=== PATIENT | male | born 1965 | race Two or more races ===

== ENCOUNTER 2024-05-30 09:53 | Outpatient (AMB) | payer MEDICAID, SELFPAY ==
[2024-05-30 10:04] VITALS: BP 150/94; PULSE 71; RESP 18; TEMP 36.6; O2SAT 93; BMI 27.9
--- NOTE | 2024-05-30 10:04 | PD.ORTHCLVIS ---
Vital signs 05/30/24 10:04 Height 1.73 m Height Method Stated Weight 83.574 kg Weight Measurement Method Standing Scale BMI 27.9 BP 150/94 H Blood Pressure Source Automatic Cuff Blood Pressure Location Left Upper Arm Position Sitting Respiration 18 Pulse 71 Pulse Source Monitor Temp 97.8 F Temp Source Temporal Artery Scan Pulse Oximetry (%) 93 L Oxygen Delivery Method Room Air Med/Allergies Allergies & Medications Allergies No Known Allergies Allergy (Verified 05/30/24 10:05) Medication Reconciliation meloxicam 15 mg tablet 15 mg PO QDAY 03/29/24 [History Confirmed 05/30/24] meloxicam 7.5 mg tablet 7.5 mg PO QDAY #45 tabs 05/30/24 [Rx] pregabalin 75 mg capsule 75 mg PO bid #45 caps 05/30/24 [Rx] Subjective Visit Visit for: follow up visit and knee (BILATERAL) Immunization / Flu Flu Vaccine in the Last 12 Months: Yes Flu Vaccine Exclusion Criteria: Already Received History of Present Illness Chief complaint: BILATERAL KNEE PAIN Sabrina Kern is a pleasant 58-year-old male with bilateral knee pain worse on the left. He reports that on the left side the pain starts just above the knee and radiates all the way down to his toes. He feels like there is significant pain and is electric like. On the right side the pain is isolated to the knee and it has no radicular distributions. The patient has not had any injections in his knee. He has tried ibuprofen. Pain Pain level (0-10): 9 Pain duration: CONSTANT Pain location: inside (medial) Pain quality: sharp, dull and aching Pain timing: night, increases with activity and stairs Associated signs & symptoms: weakness and stiffness Ambulatory data Ambulatory device: none Treatments Improvement with previous injections: No Improvement with PT: No Improvement with NSAIDS: no Review of Systems Review of Systems: All systems negative unless otherwise noted in HPI. Exam Exam Patient is in no acute distress and is cooperative with the examination today. Breathing is nonlabored. In no respiratory distress. Bilateral extremities were evaluated and demonstrates sensation intact to light touch. Palpable pedal pulses are present. No significant edema is present. Bilateral hips were examined. The patient has no pain with log roll of the hips. Internal rotation to 30 degrees and external rotation to 30 degrees is painless. Negative FADIR. The left knee was examined. The left knee is in [varus] alignment. Range of motion from [0-115] degrees. Knee is stable to varus and valgus as well as AP translation with <5mm. Patient has a [negative] McMurrays. There is [no] pain with patellofemoral compression and [no] crepitus noted. The knee is [tender] to palpation [medially]. The right knee was also examined. The right knee is in [varus] alignment. Range of motion from [0-120] degrees. Knee is stable to varus and valgus as well as AP translation with <5mm. Patient has a [negative] McMurrays. There is [no] pain with patellofemoral compression and [no] crepitus noted. The knee is [tender] to palpation [medially]. X-rays demonstrate right greater than left knee arthritis. Is severe on the right and mild on the left. Assessment and Plan Problem List (1) Degenerative arthritis of knee, bilateral: Status: Acute Plan: Pelon is a pleasant 58-year-old male with bilateral knee pain and bilateral knee arthritis. We will start with bilateral knee injections. I am not sure if his left knee is neuropathy symptoms or from his left knee arthritis. We will start with both diagnostic and therapeutic injections Recommend knee cortisone injections as patient would like to proceed with conservative treatment at this time. The risks and benefits of the procedure were reviewed with the patient and patient gave verbal consent to continue with the procedure. Procedure: performed by Dr. Harvey Using sterile technique the Bilateral knees were thoroughly prepped with alcohol, and approximately 1 cc of Kenalog 40 mg/mL and 4 cc of 1% lidocaine was injected into each knee without resistance into the medial tibial femoral joint space. The patient tolerated the procedure. Office Procedures GNS Level of Care Nursing/Assessment Patient Status: Established Patient Nursing Assessment/Reassesment: Medication Reconciliation, Update PMH in EMR and Vital Signs Coordination of Care: Complex Care and Chronic Disease 1-5, Education Complex Pt/Fam, Consent,records obtained, informed consent, 1 Ins Authorization, Results/Orders obtained and Staff clarify orders Special Needs: Language special needs Established Patient Charge Established Patient Point Assignment: 110 Established Patient Point Charge: EP Level 3 (80-115) Medication Given Medication Given Medication Given: Yes Documented Dose Given: 4 Route: Infiitration Medication Given Medication Given Medication Given: Yes Documented Dose Given: 4 Route: Infiitration Medication Given Medication Given Medication Given: Yes Documented Dose Given: 1 Route: Infiitration Medication Given Medication Given Medication Given: Yes Documented Dose Given: 1 Route: Infiitration Office Meds Xylocaine 10 mg/mL (1 %) injection solution Performing Provider: George Harvey MD Performing Location: [facility] Administered by: George Harvey MD on 05/30/24 10:29 Dose Route Admin Location Dispensed Lot Number Expiration Date [employer] 20 mL Infiltration 20 mL [id number] 02/19/27 93878-747-96 [employer] Xylocaine 10 mg/mL (1 %) injection solution Performing Provider: George Harvey MD Performing Location: [facility] Administered by: George Harvey MD on 05/30/24 10:29 Dose Route Admin Location Dispensed Lot Number Expiration Date ND [employer] 20 mL Infiltration 20 mL [id number] 02/19/27 03823-025-70 [employer] triamcinolone acetonide 40 mg/mL suspension for injection Performing Provider: George Harvey MD Performing Location: [facility] Administered by: George Harvey MD on 05/30/24 10:29 Dose Route Admin Location Dispensed Lot Number Expiration Date ND [employer] 40 mg Infiltration 1 mL [id number] 02/19/26 [address]-1 [employer] triamcinolone acetonide 40 mg/mL suspension for injection Performing Provider: George Harvey MD Performing Location: [facility] Administered by: George Harvey MD on 05/30/24 10:29 Dose Route Admin Location Dispensed Lot Number Expiration Date ND [employer] 40 mg Infiltration 1 mL [id number] 02/19/27 [address]-7 [employer] Past Medical History Past Medical History Have you ever been diagnosed with any of the following: Cardiology Problems Hypertension: Yes Respiratory Problems Smoking: No Smoking Exposure: No
== END 2024-05-30 10:36 | disposition home or self-care (01) ==
LOC: HODSRG 09:53
PROVIDERS: PCP Family Medicine; Referring Provider Family Medicine; Supervising Provider Orthopaedic Surgery Adult Reconstructive Orthopaedic Surgery; Visit Provider Orthopaedic Surgery Adult Reconstructive Orthopaedic Surgery
DX: M17.0 Bilateral primary osteoarthritis of knee (principal); M25.562 Pain in left knee; M25.561 Pain in right knee; I10 Essential (primary) hypertension
CPT/HCPCS: 20610; 99213; J3301; J3490; G0463

== ENCOUNTER 2024-09-03 13:30 | Outpatient (AMB) | payer MEDICAID, SELFPAY ==
[2024-09-03 13:50] VITALS: BP 132/87; PULSE 83; RESP 18; TEMP 36.8; O2SAT 96; BMI 28.6
--- NOTE | 2024-09-03 13:50 | ORTHONT_ITS ---
Vital signs 09/03/24 13:50 Height 1.73 m Height Method Stated Weight 85.729 kg Weight Measurement Method Standing Scale BMI 28.6 BP 132/87 H Blood Pressure Source Automatic Cuff Blood Pressure Location Left Upper Arm Position Sitting Respiration 18 Pulse 83 Pulse Source Monitor Temp 98.2 F Temp Source Temporal Artery Scan Pulse Oximetry (%) 96 Oxygen Delivery Method Room Air Med/Allergies Allergies & Medications Allergies No Known Allergies Allergy (Verified 09/03/24 13:50) Medication Reconciliation meloxicam 15 mg tablet 15 mg PO QDAY 03/29/24 [History Confirmed 09/03/24] meloxicam 7.5 mg tablet 7.5 mg PO QDAY #45 tabs 05/30/24 [Rx Confirmed 09/03/24] pregabalin 75 mg capsule 75 mg PO bid #45 caps 05/30/24 [Rx Confirmed 09/03/24] Exam Exam Patient is in no acute distress and is cooperative with the examination today. Breathing is nonlabored. In no respiratory distress. Bilateral extremities were evaluated and demonstrates sensation intact to light touch. Palpable pedal pulses are present. No significant edema is present. Bilateral hips were examined. The patient has no pain with log roll of the hips. Internal rotation to 30 degrees and external rotation to 30 degrees is painless. Negative FADIR. The left knee was examined. The left knee is in [varus] alignment. Range of motion from [0-115] degrees. Knee is stable to varus and valgus as well as AP translation with <5mm. Patient has a [negative] McMurrays. There is [no] pain with patellofemoral compression and [no] crepitus noted. The knee is [tender] to palpation [medially]. The right knee was also examined. The right knee is in [varus] alignment. Range of motion from [0-120] degrees. Knee is stable to varus and valgus as well as AP translation with <5mm. Patient has a [negative] McMurrays. There is [no] pain with patellofemoral compression and [no] crepitus noted. The knee is [tender] to palpation [medially]. X-rays demonstrate right greater than left knee arthritis. it Is severe on the right and mild on the left. Assessment and Plan Problem List (1) Degenerative arthritis of knee, bilateral: Status: Acute Plan: Pelon is a pleasant 58-year-old male with bilateral knee pain and bilateral knee arthritis. We will start with bilateral knee injections. I am not sure if his left knee is neuropathy symptoms or from his left knee arthritis. We will start with both diagnostic and therapeutic injections Recommend knee cortisone injections as patient would like to proceed with conservative treatment at this time. The risks and benefits of the procedure were reviewed with the patient and patient gave verbal consent to continue with the procedure. Procedure: performed by Dr. Harvey Using sterile technique the Bilateral knees were thoroughly prepped with alcohol, and approximately 1 cc of Kenalog 40 mg/mL and 4 cc of 1% lidocaine was injected into each knee without resistance into the medial tibial femoral joint space. The patient tolerated the procedure. Office Procedures GNS Level of Care Nursing/Assessment Patient Status: Established Patient Nursing Assessment/Reassesment: Medication Reconciliation, Update PMH in EMR and Vital Signs Coordination of Care: Complex Care and Chronic Disease 1-5, Education Complex Pt/Fam, Consent,records obtained, informed consent, Results/Orders obtained and Staff clarify orders Special Needs: Language special needs Established Patient Charge Established Patient Point Assignment: 95 Established Patient Point Charge: EP Level 3 (80-115) MA Intake Visit Data Collection New Patient or Established: Established Patient (seen at [facility] within 3 years) Reason for Visit:: BL KNEE INJECTION F/U Seen by Clinical Staff ONLY (RN/MA): No Hot Saw Helper Required: Yes PCP or OBGYN visit in last 3 months: Yes Hx Now: No Do You Feel Safe at Home: Yes Authorities Contacted: N/A Questionairres Past Medical History Past Medical History Have you ever been diagnosed with any of the following: Cardiology Problems Hypertension: Yes Respiratory Problems Smoking: No Smoking Exposure: No Subjective Visit Visit for: follow up visit, knee and injections Immunization / Flu Flu Vaccine in the Last 12 Months: No Flu Vaccine Exclusion Criteria: No Exclusion Criteria History of Present Illness Chief complaint: right knee pain Patient is a pleasant 58-year-old male with actually bilateral knee pain worse on the left greater than the right today. He reports significant knee pain. The pain is primarily medial. This has been ongoing for 7 years. He reports that he has had more than 10 injections on each knee. The pain is affecting his quality life and happiness. He reports that he would bilateral knee injections again as the last one worked more than 3 months Pain Pain level (0-10): 6 Pain duration: COMES AND GOES Pain location: inside (medial), outside (lateral) and anterior Pain quality: sharp, dull and aching Associated signs & symptoms: none Ambulatory data Ambulatory device: none Treatments Improvement with previous injections: No Improvement with PT: No Improvement with NSAIDS: no Review of Systems Review of Systems: All systems negative unless otherwise noted in HPI.
== END 2024-09-03 14:29 | disposition home or self-care (01) ==
LOC: HODSRG 13:30
PROVIDERS: PCP Family Medicine; Referring Provider Family Medicine; Supervising Provider Orthopaedic Surgery Adult Reconstructive Orthopaedic Surgery; Visit Provider Orthopaedic Surgery Adult Reconstructive Orthopaedic Surgery
DX: M17.0 Bilateral primary osteoarthritis of knee (principal); M25.562 Pain in left knee; M25.561 Pain in right knee; I10 Essential (primary) hypertension
CPT/HCPCS: 20610; 99213; J3301; J3490; G0463

== ENCOUNTER 2025-01-02 08:01 | Outpatient (AMB) | payer MEDICAID, SELFPAY ==
[2025-01-02 08:11] VITALS: BP 145/97; PULSE 59; RESP 17; TEMP 36.2; O2SAT 95; BMI 28.2
--- NOTE | 2025-01-02 08:11 | ORTHONT_ITS ---
Vital signs 01/02/25 08:11 Height 1.73 m Height Method Stated Weight 84.425 kg Weight Measurement Method Standing Scale BMI 28.2 BP 145/97 H Blood Pressure Source Automatic Cuff Blood Pressure Location Right Upper Arm Position Sitting Respiration 17 Pulse 59 L Pulse Source Monitor Temp 97.2 F Temp Source Temporal Artery Scan Pulse Oximetry (%) 95 Oxygen Delivery Method Room Air Med/Allergies Allergies & Medications Allergies No Known Allergies Allergy (Verified 01/02/25 08:13) Medication Reconciliation meloxicam 15 mg tablet 15 mg PO QDAY 03/29/24 [History Confirmed 01/02/25] pregabalin 75 mg capsule 75 mg PO bid #45 caps 05/30/24 [Rx Confirmed 01/02/25] meloxicam 7.5 mg tablet 7.5 mg PO QDAY #45 tabs 01/02/25 [Rx] Exam Exam Patient is in no acute distress and is cooperative with the examination today. Breathing is nonlabored. In no respiratory distress. Bilateral extremities were evaluated and demonstrates sensation intact to light touch. Palpable pedal pulses are present. No significant edema is present. Bilateral hips were examined. The patient has no pain with log roll of the hips. Internal rotation to 30 degrees and external rotation to 30 degrees is painless. Negative FADIR. The left knee was examined. The left knee is in [varus] alignment. Range of motion from [0-115] degrees. Knee is stable to varus and valgus as well as AP translation with <5mm. Patient has a [negative] McMurrays. There is [no] pain with patellofemoral compression and [no] crepitus noted. The knee is [tender] to palpation [medially]. The right knee was also examined. The right knee is in [varus] alignment. Range of motion from [0-120] degrees. Knee is stable to varus and valgus as well as AP translation with <5mm. Patient has a [negative] McMurrays. There is [no] pain with patellofemoral compression and [no] crepitus noted. The knee is [tender] to palpation [medially]. X-rays demonstrate right greater than left knee arthritis. it Is severe on the right and mild on the left. Assessment and Plan Problem List (1) Degenerative arthritis of knee, bilateral: Status: Acute Plan: Pelon is a pleasant 58-year-old male with bilateral knee pain and bilateral knee arthritis. HE would like bilateral knee injections today Recommend knee cortisone injections as patient would like to proceed with conservative treatment at this time. The risks and benefits of the procedure were reviewed with the patient and patient gave verbal consent to continue with the procedure. Procedure: performed by Dr. Harvey Using sterile technique the Bilateral knees were thoroughly prepped with alcohol, and approximately 1 cc of Kenalog 40 mg/mL and 4 cc of 1% lidocaine was injected into each knee without resistance into the medial tibial femoral joint space. The patient tolerated the procedure. Office Procedures GNS Level of Care Nursing/Assessment Patient Status: Established Patient Nursing Assessment/Reassesment: Medication Reconciliation, Update PMH in EMR and Vital Signs Coordination of Care: Complex Care and Chronic Disease 1-5, Education Complex Pt/Fam, Consent,records obtained, informed consent, Results/Orders obtained and Staff clarify orders Special Needs: Language special needs (NEPALESE ) Established Patient Charge Established Patient Point Assignment: 95 Established Patient Point Charge: EP Level 3 (80-115) Surgical Proc/IM SQ injection Major Surgical Procedure: Yes (BILATERAL KNEE INJECTION) Medication Given Medication Given Medication Given: Yes Documented Dose Given: 8 Route: Infiitration Medication Given Medication Given Medication Given: Yes Documented Dose Given: 2 Route: Infiitration Office Meds Xylocaine 10 mg/mL (1 %) injection solution Performing Provider: George Harvey MD Performing Location: [facility] Administered by: George Harvey MD on 01/02/25 08:23 Dose Route Admin Location Dispensed Lot Number Expiration Date [facility] [employer] 40 mL Infiltration 40 mL [id number] 11/21/27 73897-706-18 [facility] triamcinolone acetonide 40 mg/mL suspension for injection Performing Provider: George Harvey MD Performing Location: [facility] Administered by: Mag Colin on 01/02/25 08:23 Dose Route Admin Location Dispensed Lot Number Expiration Date [facility] [employer] 80 mg intra-articular 2 mL [id number] 02/19/26 38290-796-28 SHELLY HAMEED MA Intake Visit Data Collection New Patient or Established: Established Patient (seen at [facility] within 3 years) Reason for Visit:: 3 MNTH BILATERAL KNEE INJECTION Seen by Clinical Staff ONLY (RN/MA): No Licensed [employer]almer Required: Yes PCP or OBGYN visit in last 3 months: Yes Hx Now: No Do You Feel Safe at Home: Yes Authorities Contacted: N/A Questionairres Past Medical History Past Medical History Have you ever been diagnosed with any of the following: Cardiology Problems Hypertension: Yes Respiratory Problems Smoking: No Smoking Exposure: No Subjective Visit Visit for: follow up visit and knee (BILATERAL KNEE PAIN ) Immunization / Flu Flu Vaccine in the Last 12 Months: No Flu Vaccine Exclusion Criteria: Refused by Patient and No Exclusion Criteria History of Present Illness Chief complaint: right knee pain Patient is a pleasant 58-year-old male with actually bilateral knee pain worse on the left greater than the right today. He reports significant knee pain. The pain is primarily medial. This has been ongoing for 7 years. He reports that he has had more than 10 injections on each knee. The pain is affecting his quality life and happiness. The injections did not last as long as last time but he would like to try another rounds Personal History Red flag PMH: none Pain Pain level (0-10): 4 Pain duration: 1 YEAR Pain location: inside (medial), outside (lateral) and anterior Pain quality: sharp, dull and aching Pain timing: night and increases with activity Associated signs & symptoms: weakness, stiffness and none Ambulatory data Ambulatory device: none Walking distance (minutes): 1 Treatments Number of previous injections: 3 Improvement with previous injections: No Number of Physical Therapy sessions: 0 Improvement with PT: No Improvement with NSAIDS: n/a Review of Systems Review of Systems: All systems negative unless otherwise noted in HPI.
== END 2025-01-02 08:27 | disposition home or self-care (01) ==
LOC: HODSRG 08:01
PROVIDERS: PCP Family Medicine; Referring Provider Family Medicine; Supervising Provider Orthopaedic Surgery Adult Reconstructive Orthopaedic Surgery; Visit Provider Orthopaedic Surgery Adult Reconstructive Orthopaedic Surgery
DX: M17.0 Bilateral primary osteoarthritis of knee (principal); M25.562 Pain in left knee; M25.561 Pain in right knee; I10 Essential (primary) hypertension
CPT/HCPCS: 20610; 99213; J3301; J3490; G0463

== ENCOUNTER 2025-04-03 07:47 | Outpatient (AMB) | payer MEDICAID, SELFPAY ==
--- NOTE | 2025-04-03 08:06 | ORTHONT_ITS ---
Vital signs 04/03/25 08:07 Height 1.73 m Height Method Measured Weight 84.368 kg Weight Measurement Method Standing Scale BMI 28.1 BP 164/91 H Blood Pressure Source Automatic Cuff Blood Pressure Location Left Upper Arm Position Sitting Respiration 18 Pulse 66 Pulse Source Monitor Temp 97.0 F Temp Source Temporal Artery Scan Pulse Oximetry (%) 66 L Oxygen Delivery Method Room Air Med/Allergies Allergies & Medications Allergies No Known Allergies Allergy (Verified 04/03/25 08:08) Medication Reconciliation meloxicam 15 mg tablet 15 mg PO QDAY 03/29/24 [History Confirmed 04/03/25] pregabalin 75 mg capsule 75 mg PO bid #45 caps 05/30/24 [Rx Confirmed 04/03/25] meloxicam 7.5 mg tablet 7.5 mg PO QDAY #45 tabs 01/02/25 [Rx Confirmed 04/03/25] Exam Exam Patient is in no acute distress and is cooperative with the examination today. Breathing is nonlabored. In no respiratory distress. Bilateral extremities were evaluated and demonstrates sensation intact to light touch. Palpable pedal pulses are present. No significant edema is present. Bilateral hips were examined. The patient has no pain with log roll of the hips. Internal rotation to 30 degrees and external rotation to 30 degrees is painless. Negative FADIR. The left knee was examined. The left knee is in varus alignment. Range of motion from 0-115 degrees. Knee is stable to varus and valgus as well as AP translation with <5mm. Patient has a negative McMurrays. There is no pain with patellofemoral compression and no crepitus noted. The knee is [tender] to palpation [medially]. The right knee was also examined. The right knee is in varus alignment. Range of motion from 0-120 degrees. Knee is stable to varus and valgus as well as AP translation with <5mm. Patient has a negative McMurrays. There is [no] pain with patellofemoral compression and no crepitus noted. The knee is tender to palpation medially. X-rays demonstrate right greater than left knee arthritis. it Is severe on the right and mild on the left. There is complete obliteration of the medial joint space Assessment and Plan Problem List (1) Degenerative arthritis of knee, bilateral: Status: Acute Plan: Pelon is a pleasant 58-year-old male with bilateral knee pain and bilateral knee arthritis. He reports significant right knee pain compared to the left. The pain is Affecting his quality life and happiness. He has exhausted conservative treatment has had over 10 injections and anti-inflammatories The nature and purpose of the total knee replacement, alternative method(s) of treatment, the material risks involved, and the possibility of complications were fully explained to the patient. The patient does NOT have any of the following contraindications to TKA: - Active infection of the knee joint, OR - Active systemic bacteremia, OR - Active skin infection or open wound at surgical site, OR - Neuropathic arthritis, OR - Severe, rapidly progressive neurological disease, OR - Severe medical condition that makes risks of surgery outweigh the potential benefit. ?The patient was told the most common risks and complications associated with a total knee replacement include, but are not limited to: blood clots in the leg, stiffness, fatal pulmonary embolism, dislocation of the prosthesis, intraoperative and postoperative fractures of the femur or tibia, infection, failure of the prosthesis or grafting materials, complications from anesthesia, reactions to blood transfusions, postoperative leg length inequality, instability of the knee replacement, nerve damage or injury, vascular injury, delayed wound healing, infection, other injury or even . In addition, there are risks associated with anesthesia given during this operation. Also, the patient was told that after undergoing a total knee replacement there may still be persistent pain or disability. The patient was informed that the success of this operation in part depends upon the mechanical devices which are going to be implanted and that these devices can fail or malfunction, and may need to be repaired or replaced and there are no guarantees as to the longevity of this device or its parts and that it or its parts could fail prematurely. The importance of compliance with physical therapy was also discussed with the patient. The patient was also notified that during the course of surgery, there may be a need to use bone graft from donors, and that any bone graft used will be carefully screened for communicable diseases, including AIDS, hepatitis, [place]-Creutzfeldt, or other diseases, but despite the screening procedures, there is a small chance that they could contract one of these diseases. Finally, the patient was asked to follow completely and fully with all advice and recommended treatments, and that recovery and ultimate outcome are affected by their compliance with recommended treatment. We discussed the risks, benefits and treatment alternatives, and the patient is interested in proceeding with surgery. We will try to set this up as expeditiously as possible. Office Procedures GNS Level of Care Nursing/Assessment Patient Status: Established Patient Nursing Assessment/Reassesment: Medication Reconciliation, Orthostatic Vitals, Update PMH in EMR and Vital Signs Coordination of Care: Complex Care and Chronic Disease 1-5, Education Complex Pt/Fam, Consent,records obtained, informed consent, Results/Orders obtained and Staff clarify orders Special Needs: Language special needs Established Patient Charge Established Patient Point Assignment: 105 Established Patient Point Charge: EP Level 3 (80-115) MA Intake Visit Data Collection New Patient or Established: Established Patient (seen at [facility] [place] within 3 years) Reason for Visit:: 3 MNTH BILATERAL KNEE INJECTION Seen by Clinical Staff ONLY (RN/MA): No Mechanical Equipment Test Engineer Required: Yes PCP or OBGYN visit in last 3 months: Yes Hx Now: No Do You Feel Safe at Home: Yes Authorities Contacted: N/A Questionairres Past Medical History Past Medical History Have you ever been diagnosed with any of the following: Cardiology Problems Hypertension: Yes Respiratory Problems Smoking: No Smoking Exposure: No Subjective Visit Visit for: follow up visit and knee (BILATERAL KNEE PAIN ) Immunization / Flu Flu Vaccine in the Last 12 Months: No Flu Vaccine Exclusion Criteria: Refused by Patient and No Exclusion Criteria History of Present Illness Chief complaint: right knee pain Patient is a pleasant 58-year-old male with actually bilateral knee pain worse on the left greater than the right today. He reports significant knee pain. The pain is primarily medial. This has been ongoing for 7 years. He reports that he has had more than 10 injections on each knee. He has also tried home exercises and NSAIDs. The pain is affecting his quality life and happiness. Personal History Red flag PMH: none Pain Pain level (0-10): 7 Pain duration: 1 YEAR Pain location: inside (medial), outside (lateral) and anterior Pain quality: sharp, dull and aching Pain timing: night and increases with activity Associated signs & symptoms: weakness, stiffness and none Ambulatory data Ambulatory device: none Walking distance (minutes): 1 Treatments Number of previous injections: 3 Improvement with previous injections: No Number of Physical Therapy sessions: 0 Improvement with PT: No Improvement with NSAIDS: n/a Review of Systems Review of Systems: All systems negative unless otherwise noted in HPI.
[2025-04-03 08:07] VITALS: BP 164/91; PULSE 66; RESP 18; TEMP 36.1; O2SAT 66; BMI 28.1
== END 2025-04-03 08:26 | disposition home or self-care (01) ==
PROVIDERS: PCP Family Medicine; Referring Provider Family Medicine; Supervising Provider Orthopaedic Surgery Adult Reconstructive Orthopaedic Surgery; Visit Provider Orthopaedic Surgery Adult Reconstructive Orthopaedic Surgery
DX: M17.0 Bilateral primary osteoarthritis of knee (principal); M25.562 Pain in left knee; M25.561 Pain in right knee; I10 Essential (primary) hypertension
CPT/HCPCS: 99213; G0463

== ENCOUNTER → 2025-05-09 | Outpatient (CLI) | payer MEDICAID, SELFPAY ==
--- NOTE | 2025-05-09 11:00 | XR_ITS ---
Examination: CT right lower extremity without intravenous contrast, 2-D sagittal reconstructions. 2-D coronal reconstructions. 3-D reconstructions. Date and time of exam: May 09, 2025, 1040 hours INDICATIONS: Diagnosis right knee unilateral osteoarthritis, right knee pain several months CTDI: vol (mGy): 25.52 DLP: (mGycm): 958 Technique: Multiple 1.25 mm axial sections of the right lower extremity without intravenous contrast have been obtained. 2-D sagittal and coronal reconstructions have been obtained. 3-D reconstructions have been obtained. Low dose protocols were performed. One or more of the following dose reduction techniques were used; automated exposure control, adjustment of the mA and/or KV according to patient size, use of iterative reconstruction technique. Findings: Moderate osteopenia. Moderate narrowing right and left hip joints No hip or pelvic fracture noted Severe narrowing medial joint space right knee Advanced osteoarthritis lateral patellofemoral joints right knee No fracture No avascular necrosis IMPRESSION: Severe narrowing medial joint space right knee Advanced tricompartment osteoarthritis right knee
== END | disposition home or self-care (01) ==
PROVIDERS: PCP Family Medicine; Referring Provider Orthopaedic Surgery Adult Reconstructive Orthopaedic Surgery; Visit Provider Orthopaedic Surgery Adult Reconstructive Orthopaedic Surgery
DX: M25.861 Other specified joint disorders, right knee (principal); M17.11 Unilateral primary osteoarthritis, right knee
CPT/HCPCS: 73700

== ENCOUNTER 2025-06-12 07:57 | Outpatient (AMB) | payer MEDICAID, SELFPAY ==
--- NOTE | 2025-06-12 08:08 | ORTHONT_ITS ---
Vital signs 06/12/25 08:12 Height 1.73 m Height Method Measured Weight 84.056 kg Weight Measurement Method Standing Scale BMI 28.0 BP 151/89 H Blood Pressure Source Automatic Cuff Blood Pressure Location Left Upper Arm Position Sitting Respiration 18 Pulse 66 Pulse Source Monitor Temp 96.7 F L Temp Source Temporal Artery Scan Pulse Oximetry (%) 92 L Oxygen Delivery Method Room Air Med/Allergies Allergies & Medications Allergies No Known Allergies Allergy (Verified 06/12/25 08:12) Medication Reconciliation meloxicam 15 mg tablet 15 mg PO QDAY 03/29/24 [History Confirmed 06/12/25] pregabalin 75 mg capsule 75 mg PO bid #45 caps 05/30/24 [Rx Confirmed 06/12/25] meloxicam 7.5 mg tablet 7.5 mg PO QDAY #45 tabs 04/03/25 [Rx Confirmed 06/12/25] Exam Exam Patient is in no acute distress and is cooperative with the examination today. Breathing is nonlabored. In no respiratory distress. Bilateral extremities were evaluated and demonstrates sensation intact to light touch. Palpable pedal pulses are present. No significant edema is present. Bilateral hips were examined. The patient has no pain with log roll of the hips. Internal rotation to 30 degrees and external rotation to 30 degrees is painless. Negative FADIR. The left knee was examined. The left knee is in varus alignment. Range of motion from 0-115 degrees. Knee is stable to varus and valgus as well as AP translation with <5mm. Patient has a negative McMurrays. There is no pain with patellofemoral compression and no crepitus noted. The knee is [tender] to palpation [medially]. The right knee was also examined. The right knee is in varus alignment. Range of motion from 0-120 degrees. Knee is stable to varus and valgus as well as AP translation with <5mm. Patient has a negative McMurrays. There is [no] pain with patellofemoral compression and no crepitus noted. The knee is tender to palpation medially. X-rays demonstrate right greater than left knee arthritis. it Is severe on the right and mild on the left. There is complete obliteration of the medial joint space Assessment and Plan Problem List (1) Degenerative arthritis of knee, bilateral: Status: Acute Plan: Pelon is a pleasant 58-year-old male with bilateral knee pain and bilateral knee arthritis. He reports significant right knee pain compared to the left. The pain is Affecting his quality life and happiness. He has exhausted conservative treatment has had over 10 injections and anti-inflammatories. He is scheduled for June 25 The nature and purpose of the total knee replacement, alternative method(s) of treatment, the material risks involved, and the possibility of complications were fully explained to the patient. The patient does NOT have any of the following contraindications to TKA: - Active infection of the knee joint, OR - Active systemic bacteremia, OR - Active skin infection or open wound at surgical site, OR - Neuropathic arthritis, OR - Severe, rapidly progressive neurological disease, OR - Severe medical condition that makes risks of surgery outweigh the potential benefit. ?The patient was told the most common risks and complications associated with a total knee replacement include, but are not limited to: blood clots in the leg, stiffness, fatal pulmonary embolism, dislocation of the prosthesis, intraoperative and postoperative fractures of the femur or tibia, infection, failure of the prosthesis or grafting materials, complications from anesthesia, reactions to blood transfusions, postoperative leg length inequality, instability of the knee replacement, nerve damage or injury, vascular injury, delayed wound healing, infection, other injury or even . In addition, there are risks associated with anesthesia given during this operation. Also, the patient was told that after undergoing a total knee replacement there may still be persistent pain or disability. The patient was informed that the success of this operation in part depends upon the mechanical devices which are going to be implanted and that these devices can fail or malfunction, and may need to be repaired or replaced and there are no guarantees as to the longevity of this device or its parts and that it or its parts could fail prematurely. The importance of compliance with physical therapy was also discussed with the patient. The patient was also notified that during the course of surgery, there may be a need to use bone graft from donors, and that any bone graft used will be carefully screened for communicable diseases, including AIDS, hepatitis, [place]-Creutzfeldt, or other diseases, but despite the screening procedures, there is a small chance that they could contract one of these diseases. Finally, the patient was asked to follow completely and fully with all advice and recommended treatments, and that recovery and ultimate outcome are affected by their compliance with recommended treatment. We discussed the risks, benefits and treatment alternatives, and the patient is interested in proceeding with surgery. We will try to set this up as expeditiously as possible. Office Procedures GNS Level of Care Nursing/Assessment Patient Status: Established Patient Nursing Assessment/Reassesment: Medication Reconciliation, Update PMH in EMR and Vital Signs Coordination of Care: Complex Care and Chronic Disease 1-5, Education Complex Pt/Fam, Consent,records obtained, informed consent, Results/Orders obtained and Staff clarify orders Established Patient Charge Established Patient Point Assignment: 95 Established Patient Point Charge: EP Level 3 (80-115) MA Intake Visit Data Collection New Patient or Established: Established Patient (seen at [facility] within 3 years) Reason for Visit:: PRE OP RIGHT TKA Seen by Clinical Staff ONLY (RN/MA): No Supervisor Wound Required: Yes PCP or OBGYN visit in last 3 months: Yes Hx Now: No Do You Feel Safe at Home: Yes Authorities Contacted: N/A Questionairres Past Medical History Past Medical History Have you ever been diagnosed with any of the following: Cardiology Problems Hypertension: Yes Respiratory Problems Smoking: No Smoking Exposure: No Subjective Visit Visit for: follow up visit and knee (BILATERAL KNEE PAIN ) Immunization / Flu Flu Vaccine in the Last 12 Months: No Flu Vaccine Exclusion Criteria: Refused by Patient and No Exclusion Criteria History of Present Illness Chief complaint: PRE OP RIGHT TKA Patient is a pleasant 58-year-old male with actually bilateral knee pain worse on the left greater than the right today. He reports significant knee pain. The pain is primarily medial. This has been ongoing for 7 years. He reports that he has had more than 10 injections on each knee. He has also tried home exercises and NSAIDs. The pain is affecting his quality life and happiness. Personal History Red flag PMH: none Pain Pain level (0-10): 5 Pain duration: 1 YEAR Pain location: inside (medial), outside (lateral) and anterior Pain quality: sharp, dull and aching Pain timing: night and increases with activity Associated signs & symptoms: weakness, stiffness and none Ambulatory data Ambulatory device: walker (DISPENSED 06/12/2025) Walking distance (minutes): 1 Treatments Number of previous injections: 3 Improvement with previous injections: No Number of Physical Therapy sessions: 0 Improvement with PT: No Improvement with NSAIDS: n/a Review of Systems Review of Systems: All systems negative unless otherwise noted in HPI.
[2025-06-12 08:12] VITALS: BP 151/89; PULSE 66; RESP 18; TEMP 35.9; O2SAT 92; BMI 28.0
== END 2025-06-12 08:28 | disposition home or self-care (01) ==
LOC: HODSRG 07:57
PROVIDERS: PCP Family Medicine; Referring Provider Family Medicine; Supervising Provider Orthopaedic Surgery Adult Reconstructive Orthopaedic Surgery; Visit Provider Orthopaedic Surgery Adult Reconstructive Orthopaedic Surgery
DX: M25.562 Pain in left knee (principal); M25.561 Pain in right knee; M17.0 Bilateral primary osteoarthritis of knee; I10 Essential (primary) hypertension
CPT/HCPCS: 99213; G0463

== ENCOUNTER 2025-06-25 09:00 | Day surgery (SDC) | payer MEDICAID, SELFPAY ==
[2025-06-23 08:41] VITALS: BMI 31.6
[2025-06-23 10:02] LABS: Basophils # (Auto) 0.1 Thou/mm3 (0.0-0.2); Basophils % (Auto) 1 % (0-2.5); Eosinophils # (Auto) 0.1 Thou/mm3 (0.0-0.5); Eosinophils % (Auto) 2 % (0-10); Hematocrit 41.7 % (41.0-53.0); Hemoglobin 14.1 g/dL (13.5-16.0); Immature Granulocytes Auto 0.01 Thou/mm3 (0.00-0.00); Lymphocytes # (Auto) 1.5 Thou/mm3 (1.0-4.8); Lymphocytes % (Auto) 24 % (10-50); Mean Corpuscular HGB Conc 33.8 g/dl (31.0-37.0); Mean Corpuscular Hemoglobin 29.6 pg (25.0-35.0); Mean Corpuscular Volume 88 fL (80-100); Monocytes # (Auto) 0.6 Thou/mm3 (0.0-0.8); Monocytes % (Auto) 9 % (0-12); Neutrophils # (Auto) 4.1 Thou/mm3 (1.8-7.7); Neutrophils % (Auto) 64 % (37-80); Nucleated Red Blood Cell # 0.00 Thou/mm3 (0.00-0.00); Nucleated Red Blood Cell % 0 /100 WBC (0); Platelet Count 323 Thou/mm3 (140-440); RDW Standard Deviation 39.7 fL (35.1-43.9); Red Blood Count 4.76 Miln/mm3 (4.50-5.90); White Blood Count 6.3 Thou/mm3 (3.8-10.6)
[2025-06-23 10:07] LABS: INR 1.0 (0.9-1.3); Partial Thromboplastin Time 29.6 Seconds (22.0-36.0); Prothrombin Time 10.4 Seconds (9.0-12.2)
[2025-06-23 10:15] LABS: Alanine Aminotransferase 56 U/L (10-49); Albumin, Serum 4.9 gm/dL (3.4-4.8); Albumin/Globulin Ratio 2.0 (1.2-2.2); Alkaline Phosphatase 55 U/L (46-116); Anion Gap 11 (7-16); Aspartate Amino Transferase 37 U/L (0-34); BUN/Creatinine Ratio 20 Ratio (12-20); Bilirubin,Total 0.6 mg/dL (0.3-1.2); Blood Urea Nitrogen 18 mg/dL (9-23); Calcium 9.7 mg/dL (8.3-10.6); Calcium (Corrected) 9.7 mg/dL (8.5-10.1); Carbon Dioxide 26.4 mMol/L (20.0-31.0); Chloride 104 mMol/L (98-107); Creatinine (Component) 0.9 mg/dL (0.6-1.3); Estimated Creatinine Clearance 87.0 mL/min (>60); Globulin 2.5 gm/dL (2.3-3.5); Glucose 99 mg/dL (74-106); Osmolality,Calculated 283 (275-295); Potassium 3.9 mMol/L (3.4-5.1); Sodium 141 mMol/L (136-145); Total Protein 7.4 gm/dL (5.7-8.2); eGFR > 60 See Note
[2025-06-25] VITALS (19 sets, daily range): BP systolic 119–158; BP diastolic 79–104; PULSE 62–100; RESP 16–20; TEMP 36.2–36.6; O2SAT 94–96; BMI 31.0
[2025-06-25] MEDS: ACETAMINOPHEN 325 MG TABLET 650 MG PO (09:22)
[2025-06-25] MEDS: MELOXICAM 7.5 MG TABLET PO (09:23)
[2025-06-25] MEDS: PREGABALIN 75 MG CAPSULE PO (09:23)
[2025-06-25] MEDS: RINGERS LACTATED 1000 ML 1,000 ML 20 ML IV (09:23)
--- NOTE | 2025-06-25 13:08 | PD.SUROPNT ---
Date of Procedure 06/25/25 Pre Op Diagnosis right knee osteoarthritis Post Op Diagnosis right knee osteoarthritis Procedure right total knee replacement viet Findings full thickness cartilage loss and osteophytes Procedure Description Indication: The patient has a long history of right knee pain. X-rays show degenerative arthritis involving the knee. Over the past several years the patient has had increasing pain, progressive limitation in function. He has failed conservative measures including activity modification, physical therapy, injections, anti-inflammatories, and assistive devices. After a lengthy discussion of the risks and benefits, the patient presents now for total knee replacement. The nature and purpose of the total knee replacement, alternative method(s) of treatment, the material risks involved, and the possibility of complications were fully explained to the patient. The patient was told the most common risks and complications associated with a total knee replacement include, but are not limited to blood clots in the leg, fatal pulmonary embolism, dislocation of the prosthesis, intraoperative and postoperative fractures of the femur or tibia, infection, failure of the prosthesis or grafting materials, complications from anesthesia, reactions to blood transfusions, postoperative leg length inequality, instability of the knee replacement, nerve damage or injury, vascular injury, delayed wound healing, infections, other injury or even . In addition, there are risks associated with anesthesia given during this operation, temporary or permanent numbness on the skin lateral to the incision can be a complication unique to total knee surgery, and kneeling can be painful after knee replacement surgery. Also, the patient was told that after undergoing a total knee replacement there may still be pain or disability. We discussed with the patient that we will be using a robot-assisted technology. We discussed that there is a possibility of converting to manual instrumentation. The patient was informed that the success of this operation in part depends upon the mechanical devices which are going to be implanted and that these devices can fail or malfunction, and may need to be repaired or replaced and there are no guarantees as to the longevity of this device or its part and that it or its parts could fail prematurely. Finally, the patient was asked to follow completely and fully with all advice and recommended treatments, and that recovery and ultimate outcome are affected by their compliance with recommended treatment. Surgical technique: Patient was marked and consented in the pre-operative area. The patient was brought to the operating room and placed on the operating table in a supine position. Prior to positioning, a timeout procedure was performed between the surgeon, the anesthesiologist, and the nursing staff where the patient and the operative side were identified and confirmed. After adequate general anesthetic was obtained, the right lower extremity was prepped and draped in the usual sterile fashion. A weight based dose of Cefazolin were administered within 1 hour prior to incision. The robot was preregistered and calibrated before the incision. The extremity was exsanguinated with an esmarch badge and tourniquet inflated to 250mmHg. A midline incision was made. A median parapatellar arthrotomy was made. The patella was subluxed laterally. A medial release was performed to expose the medial tibia. His femoral and tibial pins were placed through an intra incisional manner for both cases. Every effort was made to ensure that the distalmost aspect of the pin was hung in the second cortex. The arrays were then tightened several times to ensure that it was fixed for the remainder of the case. Both femoral and tibial checkpoints were then placed. We then went through the registration process of the bone. We then assessed the knee deformity and attempted to correct it. We also used the robot to aid in judging laxity in both extension and flexion. Final based on laxity and alignment we changed the preoperative assessment to obtain proper proper implant positioning and to correct deformity. Attention was then placed to the tibia. We made a tibial cut using the robot ensuring that both the MCL and the patella tendon were protected with retractors. We then went to the femur and made the posterior cut followed by the anterior cut and the anterior chamfer. The bone was then removed and we made a distal femur cut and a posterior chamfer cut. We verified all cuts. A trial reduction was performed with a size 5 femoral component and a size 4 keeled tibial component. T The patella tracked centrally, and no lateral retinacular release was necessary. The trial implants were removed. The arrays, pins, and checkpoints were all removed. We performed a verification that all pins were removed. The cut bone surfaces were lavaged. A size 5 right femoral component, a size 4 keeled tibial component were impacted into position. The knee was felt to be well balanced in the sagittal and coronal plane. The final 2x10 mm cruciate-substituting articular insert was impacted into the tibial tray. The knee was brought out to full extension, flexed up to 120 degrees. It was stable to varus and valgus stress and appropriately balanced in flexion and extension. The wounds were copiously irrigated following deflation of tourniquet. The medial retinaculum was reapproximated with #1 vicryl and quill. The subcutaneous tissues were closed with 0 and 2-0 interrupted Vicryl. The skin was closed with 3-0 Monofilament V loc suture. A sterile dressing was applied. The patient was transferred to a bed and brought to recovery in stable condition. The patient tolerated the procedure well. There were no intraoperative complications. Sponge and needle counts were correct times 2. As the attending surgeon, I attest I was present and performed the entire operation. Grafts/Implants Size 5 CR Femur Size 4 Tibia 10mm poly CS Anesthesia spinal Implants Implants comments: shama Pathology / specimen None Pathology comment: none Estimated Blood Loss 150 Condition Stable Disposition same day Surgeon George Harvey MD Surgical Staff Operation Date: 06/25/25 13:20 Case Staff ABORIGINAL EDUCATION TEACHER: Bouchra Melendez RN First Assistant: Nessa Quarles
--- NOTE | 2025-06-25 13:10 | XR_ITS ---
EXAMINATION: Right knee 2 views TECHNIQUE: 1. AP lateral right knee 2 views Date and time: June 25, 2025, 1344 hours INDICATIONS: Postop knee replacement today. FINDINGS: Total right knee arthroplasty. Satisfactory alignment Moderate osteopenia No fracture IMPRESSION: Total right knee arthroplasty with satisfactory alignment
--- NOTE | 2025-06-25 13:27 | SUR.PHASEI ---
1327: Pt. AAOx4, vitals stable, breathing unlabored, no complaint of pain or nausea, dressing to right knee CDI, no active bleed noted, bilateral dorsalis pedis pulses strong and regular, cap refill to bilateral feet less than 3 seconds, pt. able to move bilateral legs, report received from Bouchra GONZALEZ and Orquidea ROBERTS.
--- NOTE | 2025-06-25 15:40 | SUR.PHASEII ---
1540: Gave discharge instructions to the pt. and his family using promotions assistant sales marketing Claudia [email or web address]. Pt. and his family verbalized understanding and had no further questions.
--- NOTE | 2025-06-25 16:39 | SUR.PHASEII ---
1639: Pt. AAOx4, vitals stable, breathing unlabored, no complaint of pain or nausea, dressing to right knee CDI, no active bleed noted, bilateral dorsalis pedis pulses strong and regular, cap refill to bilateral feet less than 3 seconds, pt. tolerated sips of juice/water well, pt. tolerated bites of food well, gave report to Jennifer ROBERTS to resume care of pt.
--- NOTE | 2025-06-25 16:48 | SUR.PHASEII ---
report received from nurse alba. vss. breathing even and unlabored. denies pain and nausea. dressing cdi to right knee. family at bedside.
[2025-06-25] MEDS: oxyCODONE HCL 5 MG IR TAB PO (17:03)
--- NOTE | 2025-06-25 18:10 | SUR.PHASEII ---
pt discharged with all belongings via wheel chair. pt, and daughter all verbalized understanding of discharge instructions. con PT seen and evaluated, states good to discharge. pt able to ambulate to restroom and urinate.
== END 2025-06-25 18:10 | disposition home or self-care (01) ==
LOC: S2EX 06-26 07:26
PROVIDERS: Anesthesiology; PCP Family Medicine; Referring Provider Orthopaedic Surgery Adult Reconstructive Orthopaedic Surgery; Visit Provider Orthopaedic Surgery Adult Reconstructive Orthopaedic Surgery
PROC: (CPT 20985; principal; 2025-06-25 13:05)
DX: M17.11 Unilateral primary osteoarthritis, right knee (principal); M25.761 Osteophyte, right knee
CPT/HCPCS: 20985; 27447; 36415; 73560; 80053; 85025; 85610; 85730; 97162; A4217; A4649; C1713; C1776; J0131; J0690; J1100; J2250; J2405; J2704; J2795; J3010; J3490; J7120; J7999; A4648; A9270

== ENCOUNTER 2025-07-08 10:36 | Outpatient (AMB) | payer MEDICAID, SELFPAY ==
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
[2025-07-08 10:58] VITALS: BP 152/100; PULSE 86; RESP 19; TEMP 36.7; O2SAT 93; BMI 30.7
== END 2025-07-08 10:59 | disposition home or self-care (01) ==
LOC: HODSRG 10:36
PROVIDERS: PCP Family Medicine; Referring Provider Family Medicine; Supervising Provider Orthopaedic Surgery Adult Reconstructive Orthopaedic Surgery; Visit Provider Orthopaedic Surgery Adult Reconstructive Orthopaedic Surgery
DX: M17.0 Bilateral primary osteoarthritis of knee (principal); Z28.21 Immunization not carried out because of patient refusal
CPT/HCPCS: 99213; G0463